=== PATIENT | male | born 1935 | race Caucasian/White ===

== ENCOUNTER → 2016-12-05 | Outpatient (CLI) | payer OTHER, BC ==
[~2016-12-05] MED LIST: AMLO-110 PO; ATOR-22 PO; CLON1TAB3 PO; DOXY100C41 PO; EFF/375 PO; FAMC500T4 PO; FRS/40 PO; MULT-190 PO; OXYC-57 PO; POTA20TA16 PO; QUET1TAB91 PO; SYMIN160 INH; TAMS0.4C38 PO; TRAZ100T29 PO; UMEC1AER INH
--- NOTE | 2016-12-05 17:35 | DIAGNOSTIC IMAGING REPORT ---
THREE-PHASE NUCLEAR BONE SCAN OF THE THORAX CLINICAL HISTORY: Right shoulder pain. Clinical concern for loosening. COMPARISON STUDY: Chest x-ray dated 11/02/2013. TECHNIQUE: Following the IV administration of 25.4 mCi of technetium 99m MDP, three-phase bone scan of the thorax was performed. Anterior and posterior flow and blood pool phase imaging was performed. Bone phase imaging of the thorax was performed at three hours in multiple obliquities. Note that interpretation is suboptimal without current plain film correlate. FINDINGS: There is no hyperemia identified in the thorax on the flow or blood pool phase images. On the bone phase images a photopenic defect is consistent with a right shoulder arthroplasty. There is slightly increased tracer present in the medial aspect of the proximal humerus on the bone phase images. There is also slightly increased Tracer activity within the right glenoid. Mild degenerative activity is present in the left shoulder and the cervical spine. IMPRESSION: 1. Three-phase negative bone scan of the right shoulder as above. 2. There is slightly increased tracer activity identified around the right shoulder arthroplasty as above. Although nonspecific this could be seen in the setting of aseptic loosening as clinically suspected. Electronically signed by: Tapan Henson M.D. 12/05/2016 5:33 PM Dictated Date/Time: 12/05/2016 5:28 PM
== END | disposition home or self-care (01) ==
LOC: C.NUCL 13:51
PROVIDERS: ATTEND Orthopaedic Surgery Sports Medicine
DX: T84.84XA Pain due to internal orthopedic prosthetic devices, implants and grafts, initial encounter (principal); Z96.611 Presence of right artificial shoulder joint; Y83.1 Surgical operation with implant of artificial internal device as the cause of abnormal reaction of the patient, or of later complication, without mention of misadventure at the time of the procedure

== ENCOUNTER → 2016-12-26 | Outpatient (CLI) | payer OTHER, BC ==
[~2016-12-26] VITALS: Ht 175.3 cm; Wt 112.8 kg
[2016-12-26 13:56] VITALS: Ht 175.3 cm; Wt 112.8 kg
--- NOTE | 2016-12-26 14:39 | PAT Medication Instructions ---
Service Date Dec 26, 2016. Current Home Medication List Amlodipine (Norvasc), 1 TAB PO HS Atorvastatin (Lipitor), 20 MG PO QPM Budesonide/Formoterol Fumarate (Symbicort 160/4.5 Inhaler ), 2 PUFFS INH BID Clonazepam (Klonopin), 2 MG PO TID PRN for Anxiety/Agitation Furosemide (Lasix), 2 TAB PO QAM Ocuvite Preservision (Ocuvite Preservision), 1 TAB PO DAILY Potassium Ext Rel (Klor-Con), 2 TAB PO QAM Quetiapine Fumarate (Seroquel), 125 MG PO HS Venlafaxine Hcl (Effexor), 2 TAB PO QAM Medication Instructions For Your Scheduled Surgery - Hold the following medications the morning of surgery: Furosemide (Lasix), 2 TAB PO QAM Potassium Ext Rel (Klor-Con), 2 TAB PO QAM Ocuvite Preservision (Ocuvite Preservision), 1 TAB PO DAILY - Take the following medications the morning of surgery with a sip of water OTHERWISE NOTHING TO EAT OR DRINK AFTER MIDNIGHT: Venlafaxine Hcl (Effexor), 2 TAB PO QAM Clonazepam (Klonopin), 2 MG PO TID PRN for Anxiety/Agitation Budesonide/Formoterol Fumarate (Symbicort 160/4.5 Inhaler ), 2 PUFFS INH BID - Take the following medications as scheduled the night before surgery: Amlodipine (Norvasc), 1 TAB PO HS Atorvastatin (Lipitor), 20 MG PO QPM Quetiapine Fumarate (Seroquel), 125 MG PO HS Clonazepam (Klonopin), 2 MG PO TID PRN for Anxiety/Agitation Budesonide/Formoterol Fumarate (Symbicort 160/4.5 Inhaler ), 2 PUFFS INH BID If you have any questions please call us at [phone] or [phone] or [phone]
[2016-12-26 15:39] LABS: BASO % 0.7 %; BASO ABS # 0.05 K/uL (0-0.2); COMPLETE YES; EOS % 2.1 %; HEMATOCRIT 40.2 % (42-52); IG% 2.1 %; LYMPH % 14.8 %; LYMPH ABS # 1.11 K/uL (1.2-3.4); MEAN CORPUSCULAR HEMOGLOBIN 30.3 pg (25-34); MEAN CORPUSCULAR HGB CONC 34.8 g/dl (32-36); MEAN PLATELET VOLUME 9.3 fL (7.4-10.4); MONO % 8.5 %; NEUT % 71.8 %; PLATELET COUNT 205 K/uL (130-400); RED BLOOD COUNT 4.62 M/uL (4.7-6.1)
[2016-12-26 15:41] LABS: URINE APPEARANCE CLEAR (CLEAR); URINE BILIRUBIN NEG (NEG); URINE COLOR DK YELLOW; URINE NITRITE NEG (NEG); URINE SPECIFIC GRAVITY 1.027 (1.000-1.030); UROBILINOGEN NEG (NEG)
[2016-12-26 15:43] LABS: MANUAL MICROSCOPIC REQUIRED? NO; REVIEW REQ? NO
[2016-12-26 16:05] LABS: BUN/CREATININE RATIO 21.2 (10-20); CALCIUM 9.2 mg/dl (8.5-10.1)
[2016-12-27 07:03] LABS: ESTIMATED AVERAGE GLUCOSE 157 mg/dl; HA1C FLAG Normal (Normal)
--- NOTE | 2017-02-03 09:14 | CODING QUERY MEDICAL NECESSITY ---
SUPPORTING DIAGNOSIS NEEDED Dr. Dodge, A supporting diagnosis is required for the test/procedure performed on this patient in order for us to be reimbursed by the patient's insurance. Please provide a supporting diagnosis for the following test/procedure listed below next to the test name along with your signature. *If there is no additional diagnosis for this patient that would support the following test/procedure please document that below next to the test/procedure. Test(s)/Procedure(s) that require a supporting diagnosis: * [id number] GLYCATED HEMOGLOBIN DIAGNOSIS: DATE OF SERVICE: 12/26/16 Provider Signature: Date: Thank you Tyron Thomson [facility] Information Management Once completed, please kindly fax back to [phone] For questions please call [phone]
== END | disposition home or self-care (01) ==
LOC: C.LAB 08:00 → EDSTATUS 12-28 08:29
PROVIDERS: ATTEND Orthopaedic Surgery Sports Medicine
DX: Z01.810 Encounter for preprocedural cardiovascular examination (principal); Z01.812 Encounter for preprocedural laboratory examination

== ENCOUNTER → 2017-01-16 | Outpatient (CLI) | payer OTHER, BC ==
[~2017-01-16] MED LIST changes: -FAMC500T4 PO; -TAMS0.4C38 PO; -TRAZ100T29 PO
--- NOTE | 2017-01-16 15:46 | ECHOCARDIOGRAM REPORT ---
*NOTICE TO RECEIVING DEMOCRAT AGENCY This information is strictly Confidential and protected under [place] law. [place] law prohibits you from making any further disclosure of this information unless further disclosure is expressly permitted by the written consent of the person to whom it pertains or is authorized by law. A general authorization for the release of medical or other information is not sufficient for this purpose. Hospital accepts no responsibility if the information is made available to any other person, INCLUDING THE PATIENT. Interpretation Summary * Name: AMOL RUIZ Study Date: 01/16/2017 01:56 PM BP: 162/70 mmHg * Patient Location: [facility] HR: 65 * : 1935 (M/d/yyyy) Gender: Male Height: 69 in * Age: 81 yrs Ethnicity: [place] Weight: 250 lb * Ordering Physician: Eric Jaimes DO * Performed By: Renee Brumfield RDCS * * Reason For Study: Murmur * BSA: 2.3 m2 * -- Conclusions -- * 1. Normal LV size. Mild concentric LVH. * 2. Normal LV systolic function. LVEF 55-60%. No regional wall motion abnormalities. * 3. Mildly dilated RV. Normal RV function. * 4. Moderate aortic sclerosis without stenosis. * 5. Grade I diastolic dysfunction. * 6. Mild biatrial enlargement. * 7. Compared with prior study on 10/28/2012: No significant change. Procedure Details * A complete two-dimensional transthoracic echocardiogram was performed (2D, M-mode, Doppler and color flow Doppler). Left Ventricle * The left ventricle is grossly normal size. * There is mild concentric left ventricular hypertrophy. * Ejection Fraction = 55-60%. * No regional wall motion abnormalities noted. Right Ventricle * The right ventricle is mildly dilated. * The right ventricular systolic function is normal as assessed by tricuspid annular plane systolic excursion (TAPSE) (normal >1.5 cm). Atria * The left atrium is mildly dilated. * The right atrium is mildly dilated. * No ASD detected; PFO is not assessed. Mitral Valve * The mitral valve is grossly normal. * There is no mitral valve stenosis. * Significant mitral regurgitation is absent. Tricuspid Valve * The tricuspid valve is not well visualized, but is grossly normal. * There is no tricuspid stenosis. * There is trace tricuspid regurgitation. Aortic Valve * Aortic valve sclerosis moderate, without significant aortic valvular stenosis. * The aortic valve is trileaflet. * There is no significant aortic regurgitation. Pulmonic Valve * The pulmonary valve is inadequately visualized, but the Doppler data is adequate for interpretation. * There is no pulmonic valvular stenosis. * There is no pulmonic valvular regurgitation. Great Vessels * The aortic root and proximal ascending aorta are normal sized. Pericardium/Pleural * There is no pericardial effusion. Great Vessels * Normal inferior vena cava size and collapsability with sniff indicates a normal right atrial pressure of 3 mmHg Left Ventricular Diastolic Function * Grade I diastolic dysfunction, (abnormal relaxation pattern). MMode 2D Measurements and Calculations IVSd 1.3 cm LVIDd 5.0 cm LVIDs 3.1 cm LVPWd 1.2 cm IVS/LVPW 1.0 FS 37.6 % EDV(Teich) 118.4 ml ESV(Teich) 38.5 ml EF(Teich) 67.4 % EDV(cubed) 125.2 ml ESV(cubed) 30.4 ml EF(cubed) 75.7 % LV mass(C)d 243.7 grams LV mass(C)dI 107.3 grams/m\S\2 CO(Teich) 5.7 l/min CI(Teich) 2.5 l/min/m\S\2 SV(Teich) 79.8 ml SI(Teich) 35.1 ml/m\S\2 CO(cubed) 6.8 l/min CI(cubed) 3.0 l/min/m\S\2 SV(cubed) 94.8 ml SI(cubed) 41.7 ml/m\S\2 Ao root diam 3.5 cm Ao root area 9.5 cm\S\2 LA dimension 3.8 cm asc Aorta Diam 3.3 cm LA/Ao 1.1 LVOT diam 2.0 cm LVOT area 3.3 cm\S\2 LVAd ap4 28.1 cm\S\2 LVLd ap4 7.8 cm EDV(MOD-sp4) 82.6 ml LVAs ap4 17.5 cm\S\2 LVLs ap4 6.9 cm ESV(MOD-sp4) 37.6 ml EF(MOD-sp4) 54.5 % LVAd ap2 27.2 cm\S\2 LVLd ap2 7.6 cm EDV(MOD-sp2) 78.8 ml LVAs ap2 16.1 cm\S\2 LVLs ap2 6.3 cm ESV(MOD-sp2) 34.1 ml EF(MOD-sp2) 56.7 % CO(MOD-sp4) 3.2 l/min CI(MOD-sp4) 1.4 l/min/m\S\2 SV(MOD-sp4) 45.0 ml SI(MOD-sp4) 19.8 ml/m\S\2 CO(MOD-sp2) 3.2 l/min CI(MOD-sp2) 1.4 l/min/m\S\2 SV(MOD-sp2) 44.7 ml SI(MOD-sp2) 19.7 ml/m\S\2 Doppler Measurements and Calculations MV E max luis 47.5 cm/sec MV A max luis 99.9 cm/sec MV E/A 0.48 MV dec time 0.48 sec Ao V2 max 270.5 cm/sec Ao max PG 29.3 mmHg Ao max PG (full) 25.5 mmHg Ao V2 mean 192.9 cm/sec Ao mean PG 17.4 mmHg Ao V2 VTI 52.3 cm OSMANI(V,A) 1.2 cm\S\2 OSMANI(V,D) 1.2 cm\S\2 LV V1 max PG 3.8 mmHg LV V1 max 97.0 cm/sec SV(Ao) 494.6 ml SI(Ao) 217.8 ml/m\S\2 PA V2 max 162.9 cm/sec PA max PG 10.6 mmHg PA acc slope 812.8 cm/sec\S\2 PA acc time 0.11 sec PA pr(Accel) 31.5 mmHg
== END | disposition home or self-care (01) ==
LOC: C.CPL 13:14
PROVIDERS: ATTEND Neuromusculoskeletal Medicine & OMM
DX: R01.1 Cardiac murmur, unspecified (principal)

== ENCOUNTER → 2017-03-14 | Outpatient (CLI) | payer OTHER, BC ==
[2017-03-14 15:45] LABS: BASO % 0.3 %; BASO ABS # 0.02 K/uL (0-0.2); COMPLETE YES; EOS % 2.1 %; HEMATOCRIT 42.1 % (42-52); IG% 0.1 %; LYMPH % 20.2 %; LYMPH ABS # 1.35 K/uL (1.2-3.4); MEAN CELL VOLUME 89.6 fL (80-100); MEAN CORPUSCULAR HEMOGLOBIN 29.6 pg (25-34); MEAN PLATELET VOLUME 9.7 fL (7.4-10.4); MONO % 8.4 %; NEUT % 68.9 %; PLATELET COUNT 225 K/uL (130-400); WHITE BLOOD COUNT 6.69 K/uL (4.8-10.8)
[2017-03-14 15:50] LABS: URINE APPEARANCE CLEAR (CLEAR); URINE BILIRUBIN NEG (NEG); URINE COLOR YELLOW; URINE EPITHELIAL CELL AUTO 0-5 /lpf (0-5); URINE NITRITE NEG (NEG); URINE SPECIFIC GRAVITY 1.022 (1.000-1.030); UROBILINOGEN NEG (NEG)
[2017-03-14 15:51] LABS: MANUAL MICROSCOPIC REQUIRED? NO; REVIEW REQ? NO
[2017-03-14 16:12] LABS: BLOOD UREA NITROGEN 14 mg/dl (7-18); BUN/CREATININE RATIO 12.6 (10-20); CALCIUM 9.4 mg/dl (8.5-10.1); CARBON DIOXIDE 26 mmol/L (21-32); CHLORIDE 108 mmol/L (98-107); GLUCOSE 114 mg/dl (70-99); POTASSIUM 3.8 mmol/L (3.5-5.1); SODIUM 144 mmol/L (136-145)
== END | disposition home or self-care (01) ==
LOC: C.LAB 14:26
PROVIDERS: ATTEND Orthopaedic Surgery Sports Medicine
DX: M75.41 Impingement syndrome of right shoulder (principal)

== ENCOUNTER 2017-03-31 08:18 | Day surgery (SDC) | payer OTHER, BC ==
[2017-03-16 11:19] VITALS: BMI 35.0
--- NOTE | 2017-03-30 21:39 | HISTORY & PHYSICAL EXAMINATION ---
DATE OF ADMISSION: 03/31/2017 ADMISSION HISTORY AND PHYSICAL CHIEF COMPLAINT: Chronic right shoulder pain. HISTORY OF PRESENT ILLNESS: This is a 81-year-old male patient of Dr. Gomez with chronic right shoulder pain, longstanding, now progressively getting worse. The patient underwent a total shoulder replacement in 2007. Since then, he has been having symptoms of pain and decreased function. X-rays and CT scans showed a possible rotator cuff tear and arthritis as well as impingement, so he wishes to proceed with a right shoulder arthroscopy, possible rotator cuff repair, subacromial decompression and distal clavicle excision with bursectomy. PAST MEDICAL HISTORY: Hypertension, hypercholesterolemia, irregular heartbeat, asthma, COPD, anxiety, diabetes mellitus, osteoarthritis, spine problems, neck problems, sciatica, acid reflux, obesity, dental issues and BPH. SOCIAL HISTORY: Nonsmoker, nondrinker. PAST SURGICAL HISTORY: Hernia repair and a right total shoulder arthroplasty. FAMILY HISTORY: Noncontributory. REVIEW OF SYSTEMS: The patient complains of chronic right shoulder pain. Otherwise, denies any shortness of breath, chest pain, nausea, vomiting or any other joint complaints. MEDICATIONS: Include: 1. Amlodipine 5 mg daily. 2. Atorvastatin 20 mg daily. 3. Clonazepam 1 mg daily p.r.n. 4. Klor-Con potassium 20 mEq 2 tablets in the morning. 5. Lasix 40 mg b.i.d. 6. Losartan potassium 50 mg daily. 7. Nasonex 50 mcg 1 spray in each nostril b.i.d. 8. Symbicort 2 puffs twice daily. 9. Tamsulosin 0.4 mg daily. 10. Venlafaxine 37.5 mg 1 tablet b.i.d. 11. Ventolin HFA inhaler every 4 hours as needed for 2 puffs. 12. Ellipta 62.5/25 mcg inhaler 1 puff q.a.m. inhaler. ALLERGIES: PENICILLIN, CODEINE, ATENOLOL, MORPHINE, TEGRETOL, VERAPAMIL, AND MYSOLINE. PHYSICAL EXAMINATION: GENERAL: Well-developed, well-nourished 81-year-old male in no acute distress. He is alert and oriented x3 and pleasant. HEENT: Normocephalic, atraumatic. Extraocular motions are intact. Pupils are equal and reactive to light. HEART: Reg, Irreg heartbeat with a 3/6 murmur appreciated. LUNGS: Clear. ABDOMEN: Soft and nontender, bowel sounds are present. DIAGNOSES: Right shoulder chronic pain with a history of hypertension, hypercholesterolemia, asthma, chronic obstructive pulmonary disease, anxiety, diabetes, arthritis, spine problems, neck problems, sciatica, acid reflux, obesity, dental issues and benign prostatic hypertrophy. PLAN: The patient was advised of his diagnosis. Indications, risks, benefits, and postop course have all been reviewed. The patient wishes to proceed with a right shoulder arthroscopy, possible rotator cuff repair, subacromial decompression, distal clavicle excision and bursectomy. Necessary consent forms, preoperative testing and clearances will be obtained. DAGO
[~2017-03-31] VITALS: Ht 175.3 cm; Wt 109.1 kg
[~2017-03-31 08:18] MED LIST changes: +ANCEF: ALLERGY NOTED TO ORDERED MEDICATION SCH; +BUPIVACAINE 0.5 % 5 MG/1 ML PF 10ML VIAL ONE; +CEFAZOLIN 2000 MG/60 ML D5W IV SCH; +CLONIDINE HCL 100 MCG/ML SYRINGE ONE; -DOXY100C41 PO; +LACTATED RINGER'S 1000ML 1,000 ML IV SCH; +MEPIVACAINE HCL 1.5% 30 ML VIAL ONE; -OXYC-57 PO; -SYMIN160 INH
--- NOTE | 2017-03-31 09:02 | History & Physical Bridge Note ---
H&P Re-Evaluation Bridge Note: I have examined the patient, reviewed the History & Physical and in the interval since the performance of the History & Physical I have noted the following changes of clinical significance: No changes noted
[2017-03-31 09:18] VITALS: BP 146/95; PULSE 64; TEMP 36.8; O2SAT 96; Ht 175.3 cm; Wt 109.1 kg
[2017-03-31] MEDS ORDERED: MIDAZOLAM HCL 1 MG/ML 2ML VIAL ONE (09:51)
[2017-03-31] MEDS ORDERED: FENTANYL CITRATE INJ 50 MCG/1 ML 2 ML VIAL ONE ×2 (09:51→12:58)
[2017-03-31] MEDS ORDERED: SODIUM CHLORIDE 0.9% 1000ML 1,000 ML IV SCH (13:37)
[2017-03-31] MEDS ORDERED: OXYC-57 PO (13:44)
[2017-03-31] MEDS ORDERED: DOXY100C41 PO (13:44)
[2017-03-31] MEDS ORDERED: OXYCODONE/ACETAMINOPHEN 5-325 TAB PO PRN ×2 (13:45)
--- NOTE | 2017-03-31 13:46 | Discharge Instructions ---
Discharge Instructions Date of Service March 31, 2017. Admission Reason for Admission: Impingment Syndrome Of Right Shoulder, Osteoarthr Discharge Discharge Diagnosis / Problem: Right shoulder scope, DCE, decompression Discharge Goals Goal(s): Improve function Activity Recommendations Activity Limitations: as noted below . Instructions / Follow-Up Instructions / Follow-Up See printed home sheet instructions in chart. See printed sheet for home exercises. Begin PT next week. Follow up w Dr. Dodge 10-12 d post op, call [phone] to confirm appt. Current Hospital Diet Patient's current hospital diet: Discharge Diet Recommended Diet: Regular Diet Procedures Procedures Performed: Right Shoulder Arthroscopic Subacromial Decompression, Distal Clavicle Excision , Synovectomy, Bursectomy Pending Studies Studies pending at discharge: no Medical Emergencies . Who to Call and When: Medical Emergencies: If at any time you feel your situation is an emergency, please call 911 immediately. . Non-Emergent Contact Non-Emergency issues call your: Primary Care Provider . "Provider Documentation" section prepared by Marco A Nguyen. . VTE Core Measure Inpt VTE Proph given/why not?: SCD's [place] Drug Monitoring Program Search Results: patient reviewed within database, no issues identified
[2017-03-31] MEDS ORDERED: EpHEDrine SULFATE 50MG/5ML SYR ONE (13:50)
[2017-03-31] MEDS ORDERED: VASOPRESSIN 20 UNIT/ML VIAL ONE (13:50)
[2017-03-31] MEDS ORDERED: PHENYLEPHRINE 100MCG/ML 5ML SYR ONE (13:50)
[2017-03-31] MEDS ORDERED: LIDOCAINE HCL 2% 2 ML VIAL (20MG/ML) ONE (13:50)
[2017-03-31] MEDS ORDERED: SUCCINYLCHOLINE 100MG/5ML SYR IV ONE (13:50)
[2017-03-31] MEDS ORDERED: PROPOFOL IV EMULSION 10 MG/ML 20 ML VIAL IV ONE (13:50)
--- NOTE | 2017-03-31 13:50 | [facility] Operative Report ---
Operative Report Operative Date March 31, 2017. Pre-Operative Diagnosis Chronic right shoulder pain s/p total shoulder replacement with impingement acj arthritis Post-Operative Diagnosis same chronic synovitis ,early glenoid looseneing, intact rotator cuff Procedure(s) Performed right shoulder arthroscopy with decompression and distal clavicle excision and extensive debridement Surgeon analilia Skimmer Scoop Operator Surgeon(s) [place] Estimated Blood Loss 5cc Findings as above scarred subacromial bursa and intact rotator cuff and loosening upper aspect of glenoid implant with micromotion Specimens culture: 1. Right shoulder joint fluid Drains none Anesthesia general and regional Complication(s) None Disposition Recovery Room / PACU Indications chronic pain I attest to the content of the Intraoperative Record and any orders documented therein. Any exceptions are noted below.
[2017-03-31] MEDS: HYDROmorphone INJ 1 MG/ML SYR ONE (13:51)
[2017-03-31] MEDS ORDERED: HYDROmorphone INJ 1 MG/ML SYR IV PRN (14:15)
[2017-03-31] MEDS ORDERED: NALOXONE HCL 0.4 MG/1 ML VIAL/CARP IV PRN (14:15)
[2017-03-31] MEDS ORDERED: FLUMAZENIL 0.1 MG/1 ML 10 ML VIAL IV PRN (14:15)
[2017-03-31] MEDS ORDERED: LABETALOL HCL IV 5 MG/ML 20ML IV PRN (14:15)
[2017-03-31] MEDS ORDERED: ATROPINE SULFATE 0.1 MG/ML 5ML SYR IV PRN (14:15)
[2017-03-31] MEDS ORDERED: ONDANSETRON INJ 2 MG/ML 2 ML VIAL IV PRN (14:15)
[2017-03-31] MEDS ORDERED: PROMETHAZINE HCL INJ 12.5 MG in SODIUM CHLORIDE 0.9% 50ML 50 ML IV PRN (14:15)
--- NOTE | 2017-03-31 14:34 | Anesthesiology Progress Note ---
Anesthesia Post Op Note Date & Time March 31, 2017 at 14:33 Vital Signs Pain Intensity: 3 Vital Signs Past 12 Hours Date Time Temp Pulse Resp B/P Pulse Ox O2 Delivery O2 Flow Rate FiO2 03/31/17 14:20 80 16 143/66 96 Nasal Cannula 2 03/31/17 14:10 73 22 171/87 96 Nasal Cannula 2 03/31/17 14:00 78 19 143/71 95 Nasal Cannula 2 03/31/17 13:50 78 17 169/96 100 Mask 10 03/31/17 13:41 36.4 90 14 168/117 98 Mask 10 03/31/17 09:18 36.8 64 20 146/95 96 Room Air Notes Mental Status: alert / awake / arousable, participated in evaluation Pt Amnestic to Procedure: Yes Nausea / Vomiting: adequately controlled Pain: adequately controlled Airway Patency, RR, SpO2: stable & adequate BP & HR: stable & adequate Hydration State: stable & adequate Anesthetic Complications: no major complications apparent
[2017-03-31 14:45] VITALS: BP 145/67; PULSE 78; TEMP 36.4; O2SAT 94
--- NOTE | 2017-03-31 14:49 | OPERATIVE REPORT ---
DATE OF OPERATION: 03/31/2017 INDICATION FOR PROCEDURE: A 81-year-old male who had a total shoulder replacement years ago. He was doing well for many years until recently when he started developing increasing pain with certain activities. He has radiographs demonstrating some minor calcar resorption around the proximal humerus. He has uncemented humeral stem which looks to be well fixed in position. There is no proximal migration of the humeral stem. He has a keeled glenoid cemented component with less than a millimeter lucency around the cement with good position of the implant. No change on serial x-rays and alignment of the implant. Does have advanced AC joint arthritis and has some anterior curve to the anterior acromion with type 2-3 acromion that would cause impingement. He has had a CAT scan which did not show rotator cuff tear. He does have bone on bone AC joint arthritis. He did have a bone scan which showed some mild uptake around the humeral component and the glenoid, but no clear evidence of obvious loosening, no signs of infection. Blood tests not remarkable for infection. PREOPERATIVE DIAGNOSES: Chronic right shoulder pain with total shoulder replacement with impingement and acromioclavicular joint arthritis. POSTOPERATIVE DIAGNOSES: Early glenoid loosening upper aspect of the glenoid component with synovitis glenohumeral joint, intact rotator cuff, scar tissue and chronic subacromial bursitis with significant impingement from a type 3 acromion and large inferior AC joint spurs with hypertrophic acromioclavicular joint arthritis. PROCEDURE: Right shoulder arthroscopic subacromial decompression, distal clavicle excision, extensive debridement including debridement subacromial bursa and scar tissue, release of subacromial adhesions with synovectomy glenohumeral joint. SURGEON: Dr. Dodge. FNPS: Marco A Nguyen PA-C. ANESTHESIA: Regional block general. OPERATIVE PROCEDURE: The patient was taken to the operating room, anesthetized with regional block and general anesthetic. He was a short barrel chest did male moderately muscular. He had benign healed anterior deltopectoral scar. His shoulder exam demonstrated he had 150 degrees of forward elevation and external rotation to 70 degrees. His shoulder was sterilely prepped and draped with ChloraPrep. I placed the scope into the glenohumeral joint via posterior arthroscopy portal in the soft spot. There was some normal appearing synovial fluid that we cultured from the joint. Then the scope instrumentation was placed in and we placed an anterior cannula and rotator interval into the joint and irrigated out the joint and inspected it. There was some diffuse synovitis in the glenohumeral joint. Biceps tendon was absent. The rotator cuff was completely intact. There was loosening of the glenoid. When probing the upper glenoid I could rock the upper aspect forward and backward but the lower part of the glenoid was more well fixed and there was not any micromotion at the lower aspect. In the subacromial space was thickened chronic scarred subacromial bursa, a type 3 acromion was a large hook to the anterior medial side, hypertrophic AC joint causing significant impingement and intact rotator cuff with completely intact cuff from the subacromial view. In the glenohumeral joint I did a thorough extensive debridement of the synovium anteriorly and posteriorly and debrided the undersurface of the cuff so we could fully visualize the rotator cuff to be intact. In the subacromial space, I did a thorough debridement extensively of the extensive bursa and scar tissue in the subacromial space, freeing up the rotator cuff from the underlying acromion and deltoid. Then the radiofrequency ablator was used to ablate the the bursa and periosteum on the undersurface of the acromion and then the inferior AC joint capsule was ablated to expose the large hypertrophic inferior distal clavicle. There was no room for the rotator cuff with the distal clavicle impinging down into the tendon tissue. At this time, a 5.5 bur was used to plane down the acromion to a type 1 flat shape and 1 cm distal clavicle was resected using burrs through the lateral and anterior portal and 30 and 70 degree arthroscopes were used to visualize resection. We coagulated some bleeders. I took the arm through range of motion and there was no impingement. The portal sites were then closed with nylon sutures. Sterile dressings were applied and a sling immobilizer. FLORIN Gregorio was my airplane first officer. He functioned as airplane first officer for the entire procedure. He assisted in patient positioning, prepping, draping, arm positioning, instrument management during the arthroscopy and performed skin closure, dressings, postoperative orders and will participate in postoperative care of the patient. I attest to the content of the Intraoperative Record and any orders documented therein. Any exceptio ns are noted below.
[2017-03-31 15:15] VITALS: BP 138/69; PULSE 82; TEMP 36.4; O2SAT 95
[2017-03-31 15:45] VITALS: BP 151/68; PULSE 88; TEMP 36.4; O2SAT 93
== END 2017-03-31 15:50 | disposition home or self-care (01) ==
LOC: C.ACU 08:18
PROVIDERS: ATTEND Orthopaedic Surgery Sports Medicine
DX: M25.511 Pain in right shoulder (principal); G89.29 Other chronic pain; Z96.611 Presence of right artificial shoulder joint; M19.011 Primary osteoarthritis, right shoulder; M75.41 Impingement syndrome of right shoulder; E11.22 Type 2 diabetes mellitus with diabetic chronic kidney disease; N18.9 Chronic kidney disease, unspecified; I12.9 Hypertensive chronic kidney disease with stage 1 through stage 4 chronic kidney disease, or unspecified chronic kidney disease; E66.9 Obesity, unspecified; J44.9 Chronic obstructive pulmonary disease, unspecified; I25.10 Atherosclerotic heart disease of native coronary artery without angina pectoris; J45.909 Unspecified asthma, uncomplicated; G20 Parkinson's disease; Z87.891 Personal history of nicotine dependence; Z79.899 Other long term (current) drug therapy; Z88.0 Allergy status to penicillin; Z88.5 Allergy status to narcotic agent

== ENCOUNTER → 2017-04-14 | Outpatient (CLI) | payer OTHER, BC ==
[~2017-04-14] MED LIST changes: -ANCEF: ALLERGY NOTED TO ORDERED MEDICATION SCH; -BUPIVACAINE 0.5 % 5 MG/1 ML PF 10ML VIAL ONE; -CEFAZOLIN 2000 MG/60 ML D5W IV SCH; -CLONIDINE HCL 100 MCG/ML SYRINGE ONE; +DOXY100C41 PO; -LACTATED RINGER'S 1000ML 1,000 ML IV SCH; -MEPIVACAINE HCL 1.5% 30 ML VIAL ONE; +OXYC-57 PO
--- NOTE | 2017-04-14 11:06 | DIAGNOSTIC IMAGING REPORT ---
LUMBAR SPINE MRI HISTORY: Low back pain. STENOSIS TECHNIQUE: Multiplanar multisequence MRI of the lumbar spine was performed without the use of contrast. COMPARISON: Lumbar spine 03/10/2016. FINDINGS: For the purpose of the report the L5-S1 disc space will be located on axial image 23 of 25. Mild dextroscoliosis, unchanged. The alignment is intact. No fractures. Mild endplate and facet edema at L4-5 is likely due to the long-standing degenerative change. Severe disc space narrowing at L2-L3, L3 on 4. Moderate to severe disc space narrowing at L4-L5 and L5-S1. The conus terminated L1. Paraspinal soft tissues are unremarkable. L1-L2: No significant central canal or neural foraminal narrowing. L2-L3: Small broad-based posterior disc bulge with facet hypertrophy resulting in mild central canal and mild bilateral neural foraminal narrowing. L3-L4: Small broad-based posterior disc bulge without significant central canal narrowing. Mild bilateral neural foraminal narrowing. L4-L5: Small broad-based posterior disc bulge with the ligamentum and facet hypertrophy resulting in mild central canal narrowing. Moderate to severe bilateral neural foraminal narrowing. L5-S1: No central canal narrowing. Mild left neural foraminal narrowing and moderate to severe right neural foraminal narrowing due to the facet hypertrophy. IMPRESSION: 1. Mild dextroscoliosis. 2. Multilevel degenerative changes as described above resulting in mild central canal narrowing at L2-L3 and L4-L5. 3. Multilevel bilateral neural foraminal narrowing as described above most pronounced within the lower lumbar spine. Electronically signed by: Orville Brooke M.D. 04/14/2017 11:05 AM Dictated Date/Time: 04/14/2017 10:56 AM
== END | disposition home or self-care (01) ==
LOC: C.MRIBC 09:59
PROVIDERS: ATTEND Orthopaedic Surgery Orthopaedic Surgery of the Spine
DX: M48.06 Spinal stenosis, lumbar region (principal)

== ENCOUNTER → 2017-05-15 | Outpatient (CLI) | payer OTHER, BC ==
[~2017-05-15] MED LIST changes: -DOXY100C41 PO
--- NOTE | 2017-05-15 10:05 | DIAGNOSTIC IMAGING REPORT ---
CT SCAN OF THE CHEST WITHOUT IV CONTRAST CLINICAL HISTORY: Pulmonary nodules. COMPARISON STUDY: Chest CT dated 06/20/2015. Chest x-ray dated 05/01/2016. Abdominal CT dictated 10/25/2016 and 05/22/2015. TECHNIQUE: CT scan of the thorax was performed from the thoracic inlet to the upper abdomen. Images are reviewed in the axial, sagittal, and coronal planes. IV contrast was not administered for this examination as per the front clinician. CT DOSE: 623.36 mGycm FINDINGS: Thyroid: Imaged portions of the thyroid gland are normal in size and attenuation. Thoracic aorta: There is mild atherosclerotic calcification of the thoracic aorta, which is normal in caliber and demonstrates standard 3-vessel arch anatomy. Heart: The heart is normal in size and without pericardial effusion. The coronary arteries are densely calcified. The pulmonary trunk is normal in caliber. Lungs and pleural spaces: There is minimal emphysematous change. No airspace consolidation or pleural effusion is identified. The trachea and central airways are clear. There is an accessory right upper lobe bronchus seen on axial image #100. There is a 7 mm right lower lobe pulmonary nodule seen image #211. A 3 mm pleural-based nodule is seen at the left lung base on image #254. These are unchanged dating back to 05/22/2015 and are of doubtful significance. No new pulmonary nodules are identified. The clustered foci of nodularity in the left lower lobe seen on the 10/25/[address] have resolved femora likely on an inflammatory basis. Mediastinum: There is no mediastinal lymphadenopathy. Paulette: Not well assessed without IV contrast. Axillae: There is no axillary lymphadenopathy. Upper abdomen: There is a tiny hiatal hernia. Partially visualized upper abdominal viscera is otherwise within normal limits. Skeletal structures: The skeletal structures are osteopenic. Mild degenerative change is seen in the thoracic spine and the left shoulder. No lytic or blastic bony lesions are seen. A right shoulder arthroplasty is in place. There is a mild superior end plate compression deformity of T3. IMPRESSION: 1. There is no airspace consolidation or pleural effusion. 2. A 7 mm right lower lobe pulmonary nodule has not significantly changed him back to 05/22/2015 and is of doubtful significance. 3. Foci of clustered nodularity in the left lower lobe seen on the 10/25/[address] have resolved and were likely on an inflammatory basis. 4. Additional findings as above. Electronically signed by: Tapan Henson M.D. 05/15/2017 10:03 AM Dictated Date/Time: 05/15/2017 9:55 AM
== END | disposition home or self-care (01) ==
LOC: C.CTS 09:25
PROVIDERS: ATTEND Internal Medicine Geriatric Medicine
DX: R91.8 Other nonspecific abnormal finding of lung field (principal)

== ENCOUNTER → 2017-05-22 | Outpatient (CLI) | payer OTHER, BC | END | disposition home or self-care (01) | LOC: C.PATHSPEC 16:50 | PROVIDERS: ATTEND Nurse Practitioner Adult Health | DX: R31.29 Other microscopic hematuria (principal) ==

== ENCOUNTER → 2017-06-12 | Outpatient (CLI) | payer OTHER, BC ==
[2017-06-12 17:55] LABS: BASO % 0.5 %; BASO ABS # 0.03 K/uL (0-0.2); COMPLETE YES; EOS % 3.1 %; HEMATOCRIT 41.9 % (42-52); IG% 0.6 %; LYMPH % 22.9 %; LYMPH ABS # 1.42 K/uL (1.2-3.4); MEAN CELL VOLUME 88.2 fL (80-100); MEAN CORPUSCULAR HEMOGLOBIN 29.3 pg (25-34); MEAN CORPUSCULAR HGB CONC 33.2 g/dl (32-36); MEAN PLATELET VOLUME 10.2 fL (7.4-10.4); NEUT % 62.9 %; PLATELET COUNT 191 K/uL (130-400); RED BLOOD COUNT 4.75 M/uL (4.7-6.1); WHITE BLOOD COUNT 6.19 K/uL (4.8-10.8)
[2017-06-12 18:18] LABS: ALT/SGPT 39 U/L (12-78); BLOOD UREA NITROGEN 17 mg/dl (7-18); BUN/CREATININE RATIO 13.8 (10-20); CALCIUM 9.8 mg/dl (8.5-10.1); CARBON DIOXIDE 27 mmol/L (21-32); CHLORIDE 107 mmol/L (98-107); GLUCOSE 128 mg/dl (70-99); POTASSIUM 4.1 mmol/L (3.5-5.1); SODIUM 141 mmol/L (136-145)
[2017-06-12 18:28] LABS: ALKALINE PHOSPHATASE 85 U/L (45-117); AST/SGOT 20 U/L (15-37); PROSTATE SPECIFIC ANTIGEN 0.994 ng/ml (0.000-4.000)
[2017-06-13 06:29] LABS: ESTIMATED AVERAGE GLUCOSE 157 mg/dl; HA1C FLAG Normal (Normal)
== END | disposition home or self-care (01) ==
LOC: C.LABPBG 14:03
PROVIDERS: ATTEND Internal Medicine Geriatric Medicine
DX: I10 Essential (primary) hypertension (principal); E11.9 Type 2 diabetes mellitus without complications; R00.2 Palpitations; D64.9 Anemia, unspecified; R25.1 Tremor, unspecified; R35.0 Frequency of micturition; N40.1 Benign prostatic hyperplasia with lower urinary tract symptoms

== ENCOUNTER → 2017-12-04 | Outpatient (CLI) | payer OTHER, BC ==
[~2017-12-04] MED LIST changes: -OXYC-57 PO
--- NOTE | 2017-12-04 12:53 | DIAGNOSTIC IMAGING REPORT ---
CT OF THE CHEST WITHOUT IV CONTRAST CLINICAL HISTORY: COPD. COMPARISON STUDY: Chest CT May 15, 2017 and June 20, 2015. CT DOSE: 604.97 mGycm TECHNIQUE: Axial images of the chest were obtained without IV contrast. Images were reviewed in the axial, sagittal, and coronal planes. IV contrast was not administered for this examination. A dose lowering technique was utilized adhering to the principles of ALARA. FINDINGS: No enlarged axillary, mediastinal or hilar lymph nodes are present. Size of the heart is normal. No pericardial effusion. There is extensive coronary artery calcification. Central airways are patent. There is no consolidation to suggest pneumonia. Mild right upper lobe groundglass opacity suggests atelectasis. A 7 mm right lower lobe nodule shown image 215 of 321 is unchanged since abdominal CT of April 03, 2009. This is benign. There are no new pulmonary nodules. An apparent right upper lobe bronchus is noted. No pneumothorax or pleural effusion is noted. There are no suspicious osseous lesions. Visual portions of the upper abdomen are unremarkable on this unenhanced exam. Mild mesenteric infiltration is unchanged. IMPRESSION: 1. No acute intrathoracic findings. 2. No change in a 7 mm right lower lobe nodule which is benign given stability. 3. Extensive coronary artery calcification. Electronically signed by: Mak Shore M.D. 12/04/2017 12:52 PM Dictated Date/Time: 12/04/2017 12:31 PM
== END | disposition home or self-care (01) ==
LOC: C.CTS 11:37
PROVIDERS: ATTEND Internal Medicine Pulmonary Disease
DX: J44.9 Chronic obstructive pulmonary disease, unspecified (principal); I25.10 Atherosclerotic heart disease of native coronary artery without angina pectoris

== ENCOUNTER → 2017-12-28 | Outpatient (CLI) | payer OTHER, BC ==
[~2017-12-28] MED LIST changes: +CLIN150C15 PO; +PRED10TA PO
--- NOTE | 2017-12-29 08:13 | PAP/PSG TECHNICIAN REPORT ---
[facility] Entry Level Automotive Technician Polysomnogram Report Study name: None Report date: 12/29/2017 Study date: 12/28/2017 Referring Physician: August Moreland MD Name: AMOL WATERMAN Interpreting Physician: Steve Smith D.O. Date of : 1935 Entry Level Automotive Technician: Cailin Jurado, JEREMIAHT. Sex: Male Age: 82 StudyType: PSG Weight: 245 lbs Height: 82 years, Height 5' 9" Neck Circum: BMI: 36.18 Medications: Nasanex, Ventolin, Quetiaoine Fumarate 100 mg, Metformin HCI 500 mg, Atrovastatin 20 mg, Tamsulosin HCI, Losatan 50 mg, Breo 100-25, Symbicort 160-4.5 mcg, Venlafaxine HCI 37.5 mg. Patient History 82 yr. old male presents to the sleep lab for a split night study. Acute Hypersomnolence, COPD, Diabetes, Hypertension, SOB, Aortic valve stenosis, Nocturnal oxygen desaturation. Ess= 10, Neck =17 inches Patient has heart burn and sore throat, he is sleeping with HOB elevated Parameters Monitored NPSG: E1-M2, E2-M1, Fp1-M2, Fp2-M1, F3-M2, F4-M2, F4-M1, C3-M2, C4-M2, C4-M1, O1-M2, O2-M2, O2-M1, T3-M2, T4-M1, P3-M2, P4-M1, CHIN1, CHIN2, HR, EKG, Legs, PFLOW, SNOR, FLOW, CFLOW, Tidal Volume, THOR, ABDO, SpO2, PLTH, CPRESS, ETCO2 Wave, ETCO2, pH Sleep Architecture Sleep Stages Time at Lights Off 9:33:02 PM STAGES Time (min.) TST (%) Time at Lights On 2:11:32 AM Wake 112.0 -- Total Recording Time (TRT) 279.00 min. N1 18.0 11 Total Sleep Period (TSP) 225.5 min. N2 148.5 89 Total Sleep Time (TST) 166.5min. N3 0.0 0 Awake Time 112.5 min. REM 0.0 0 Wake after Sleep Onset 99.5 min. Sleep Efficiency (SE) 60 % Sleep Onset Latency (KIERAN) 12.5 min. Number of Stage 1 Shifts None Awakenings 13 Stage Changes 41 Number of REM periods N/A REM 0.0 0 REM Latency NONE min. NREM 166.5 100 Body Position Analysis Supine Right Left Side Prone Vertical Total Sleep Time (min.) 4.1 88.5 78.0 166.50 0.0 14.5 Total Sleep Time (%) 0% 53% 47% 100 0% N/A% Total Sleep Time REM (min.) 0.0 0.0 0.0 None 0.0 0.0 Total Sleep Time NREM (min.) 0.0 88.5 78.0 None 0.0 0.0 Intermittent Wake (min.) 4.1 62.5 30.9 None 0.0 14.5 Total Sleep Period (%) 2% None None None None None Arousals Myoclonus (PLM) * Events Count Index Events Count Index Spontaneous 0 0 Events Awake (PLMW) 6 3.2 Respiratory 1 0.4 Events Asleep w/ Arousal (PLMA) 10 3.6 PLM 10 4 Events Asleep w/o Arousal (PLMS) 168 60.5 Snoring 4 1 Total Asleep 178 64.1 Total 15 5 Total 184 40 Respiratory Analysis * CA OA MA CH H RERA Total Count 0 0 0 0 2 0 2 Index 0.0 0.0 0.0 0 0.7 0 0.7 Mean Duration 0.0 0.0 0.0 0.00 20.3 0.0 20.3 Longest Duration 0.0 0.0 0.0 0.00 0.0 0.0 23.1 Respiratory Event Summary Total Supine ~Supine Right Left Prone REM NREM Apneas Count 0 N/A 0 0 0 N/A N/A 0 Index 0.0 N/A 0 0.0 0.0 N/A N/A 0 Hypopneas (4% Desat) Count 2 N/A 2 0 2 N/A N/A 2 Index 0.7 N/A 1 0.0 1.5 N/A N/A 0.7 Apneas & All Hypopneas Count 2 N/A 2 0 2 N/A N/A 2 Index 0.7 N/A 1 0 2 N/A N/A 0.7 Respiratory Events (Fluid Designer+All Hyp+RERA) Count 2 N/A 2 0 2 N/A N/A 2 Index 0.7 N/A 1 0.0 1.5 N/A N/A 0.7 Respiratory Related Arousal Count 1 N/A 1 0 1 N/A N/A 1 Index 0.4 N/A 0 0 1 N/A N/A 0 Snoring Analysis Supine Right Left Prone REM NREM Total Snore duration 37.8 min Snores count N/A 452 755 N/A N/A 1,207 1,207 Snore mean duration 1.9 Sec Snores index N/A 306 581 N/A N/A 435.0 435.0 TST with snoring (%) 22.7% Desaturation Event Summary: Minimum %SpO2 Event Count Mean/Min/Max Duration(sec.) Desaturation Index % Time In Bed > 90 2 20.6 / 19.0 / 22.3 1.0 47.9 86 - 90 0 N/A 0.0 51.8 81 - 85 0 N/A 0.0 0.1 76 - 80 0 N/A 0.0 0.2 71 - 75 0 N/A 0.0 0.0 66 - 70 0 N/A 0.0 0.0 61 - 65 0 N/A 0.0 0.0 56 - 60 0 N/A 0.0 0.0 51 - 55 0 N/A 0.0 0.0 < 50 0 N/A 0.0 0.0 Total REM NREM Awake <50% 0.0 min. 0.0 min. 0.0 min. 0.0 min. 51 - 60% 0.0 min. 0.0 min. 0.0 min. 0.0 min. 61 - 70% 0.0 min. 0.0 min. 0.0 min. 0.0 min. 71 - 80% 0.5 min. 0.0 min. 0.0 min. 0.5 min. 81 - 90% 133.5 min. 0.0 min. 105.0 min. 28.5 min. 91 - 100% 123.3 min. 0.0 min. 59.6 min. 63.7 min. Average 91 0 90 91 Minimum SpO2 76 N/A 86 76 Desaturation Event Index 0.4 0.0 0.7 0.0 # Desat. Events below 89% N/A N/A N/A N/A Time(%) with Saturation below 89% 3.4 0.0 1.7 1.7 Time(min.) with Saturation below 89% 8.8 0.0 4.4 4.3 Time (mins) REM (mins) NREM (mins) % of TST SpO2 Below 90% 1 N/A N1 27.2 SpO2 Below 88% 0 0 0 1 Heart Rate Analysis Min (bpm) Max (bpm) Average (bpm) Awake 32 188 79 NREM 55 127 66 REM N/A N/A N/A Overall 55 127 66 Supplemental O2 Values Minimum O2 level: None Value Start Time End Time Entry Level Automotive Technician Comments slept in the right, left, supine and upright positions. Frequent cardiac arrhythmia noted. No bruxism or PLMs noted. Snoring was noted and scored as a 3 on a scale of 1 through 5. (0=no snoring, 5=snoring loud enough to be heard through a closed door or down the [address] way) awoke to use the restroom once during the night. At 2:10 am MR. Waterman requested to end the study, his throat hurt and had heart burn. 911 was called to take MR. Waterman to the hospital, he did not feel he could drive and his throat was really bothering him. stated ,I should have cancelled my appointment until I was feeling better. The final report will be interpreted and signed by a sleep physician. The completed physician report will then be placed in the patient medical record. Therapy (cm H2O) 0 TIB (min.) 278.5 TST (min.) 166.5 Sleep Onset (min.) 12.5 REM Onset From Sleep (min.) NONE Sleep Efficiency % 60 Wakefulness (%) 40 Wakefulness (min.) 112.5 NREM 1 (%) 11 NREM 1 (min.) 18.0 NREM 2 (%) 89 NREM 2 (min.) 148.5 NREM 3 (%) 0 NREM 3 (min.) 0.0 REM (%) 0 REM (min.) 0.0 # Arousals 15 Arousal Index 5 # Snore 1,207 Snore Index 435.0 AHI 0.7 AHI Supine N/A AHI Non-Supine 1 NREM AHI 0.7 REM AHI N/A RDI 0.7 # Obstructive Apnea 0 # Central Apnea 0 # Mixed Apnea 0 # Hypopneas 2 RERAs 0 Total Respiratory Events 2 Time Below SpO2 89% (min.) 4.4 Mean NREM SpO2 (%) 90 Mean REM SpO2 (%) N/A Mean Sleep SpO2 (%) 90 Min NREM SpO2 (%) 86 Min REM SpO2 (%) N/A Position Supine (min.) 4.1 Position Non-supine (min.) 166.5 LM Index Sleep 64.1 LM Index NREM 64.1 LM Index REM N/A Mean Heart Rate (bpm) 66 Min Heart Rate (bpm) 55
== END | disposition home or self-care (01) ==
LOC: C.NEUR 21:00
PROVIDERS: ATTEND Internal Medicine Pulmonary Disease
DX: G47.10 Hypersomnia, unspecified (principal); Z68.35 Body mass index [BMI] 35.0-35.9, adult; J44.9 Chronic obstructive pulmonary disease, unspecified

== ENCOUNTER 2017-12-29 03:01 | Emergency (ER) | payer OTHER, BC ==
[~2017-12-29] VITALS: Ht 177.8 cm; Wt 112.8 kg
[~2017-12-29 03:01] MED LIST changes: -CLIN150C15 PO; -PRED10TA PO
[2017-12-29 03:02] VITALS: TEMP 36.6; Ht 177.8 cm; Wt 112.8 kg
[2017-12-29] MEDS ORDERED: LIDOCAINE HCL 2% VISC SOLN 20 ML UDC MT ONE (03:30)
[2017-12-29] MEDS ORDERED: CLINDAMYCIN HCL 150 MG CAP PO ONE (04:15)
[2017-12-29] MEDS ORDERED: CLIN150C15 PO (05:11)
[2017-12-29] MEDS ORDERED: PRED10TA PO (05:27)
[2017-12-29 05:33] VITALS: BP 165/89; PULSE 58; O2SAT 93
--- NOTE | 2017-12-29 05:44 | EMERGENCY ROOM VISIT NOTE ---
History Report prepared by Rebeca: Aide Mcrae Under the Supervision of: Dr. Roro Lacey M.D. First contact with patient: 03:09 Chief Complaint: THROAT PAIN/INJURY Stated Complaint: THROAT PAIN History of Present Illness The patient is an 82 year old male who presents to the Emergency Room with complaints of worsening throat pain starting 3 days ago. The patient states that he was supposed to be at the sleep lab [facility], but he cancelled that. He states that he snores and breathes through his mouth a lot. He states that he thinks he has thrush because he uses inhalers, but does not rinse his mouth out. The patient complains of pain when he swallows. He notes that he was not on a breathing machine. He states that he is a borderline diabetic. He currently rates his pain as a 10/10 in severity. Source of History: patient Onset: 3 days ago Position: throat Symptom Intensity: 10/10 Timing: worsening Note: The patient complains of pain when he swallows. Review of Systems See HPI for pertinent positives & negatives. A total of 10 systems reviewed and were otherwise negative. Past Medical & Surgical Medical Problems: (1) Anxiety State Nos (2) Asthma, Unspecified (3) Chr Airway Obstruct Nec (4) Chronic Kidney Disease, Stage Ii (Mild) (5) Depressive Disorder Nec (6) Diverticulosis Colon (W/O Ment Of Hemorrhage) (7) History Of Tobacco Use (8) Hyperlipidemia Nec/Nos (9) Hypertension Nos (10) Irritable Bowel Syndrome (11) Lumbago (12) Obesity, Nos (13) Osteoarthros Nos-Unspec Family History No pertinent family history Social History Smoking Status: Former Smoker Alcohol Use: occasionally Marital Status: Housing Status: lives with family Occupation Status: retired Current/Historical Medications Scheduled Amlodipine (Norvasc), 5 MG PO QAM Atorvastatin (Lipitor), 20 MG PO QPM Clindamycin Hcl (Clindamycin Hcl), 1 TAB PO QID Furosemide (Lasix), 2 TAB PO Q2D Ocuvite Preservision (Ocuvite Preservision), 1 TAB PO DAILY Potassium Ext Rel (Klor-Con), 2 TAB PO Q2D Prednisone Tab (Prednisone), 10 MG PO DAILY Quetiapine Fumarate (Seroquel), 25 MG PO HS Umeclidinium-Vilanterol (Anoro Ellipta 62.5-25 Mcg/INH), 1 PUFF INH QAM Venlafaxine Hcl (Effexor), 2 TAB PO QAM Scheduled PRN Clonazepam (Klonopin), 2 MG PO TID PRN for Anxiety/Agitation Allergies Coded Allergies: Codeine (Verified Allergy, Unknown, HIVES, 12/29/17) Dextromethorphan (Verified Allergy, Unknown, HIVES, 12/29/17) Doxylamine (Verified Allergy, Unknown, HIVES, 12/29/17) Penicillins (Verified Allergy, Unknown, HIVES, 12/29/17) Pseudoephedrine (Verified Allergy, Unknown, HIVES, 12/29/17) Physical Exam Vital Signs Date Time Temp Pulse Resp B/P (MAP) Pulse Ox O2 Delivery O2 Flow Rate FiO2 12/29/17 05:33 58 20 165/89 93 12/29/17 04:16 63 93 12/29/17 04:01 70 20 173/87 95 Room Air 12/29/17 03:46 64 12/29/17 03:31 63 160/72 91 12/29/17 03:19 151/74 12/29/17 03:04 164/77 12/29/17 03:02 93 Room Air 12/29/17 03:02 36.6 63 18 164/77 93 Room Air Physical Exam Vital signs reviewed. General: Well-appearing, obese, elderly, in no significant distress. HEENT: No scleral icterus, PERRLA, neck supple. Atraumatic. Enlarged uvula that extends past the tongue, edema and erythema noted. Mild erythema of the posterior oropharynx without exudate or drainage. Cardiovascular: Regular rate and rhythm, no extra sounds. Pulmonary: Clear to auscultation bilaterally, normal work of breathing. Abdomen: Soft, nontender, nondistended, positive bowel sounds. Musculoskeletal: Atraumatic, no peripheral edema. Neurologic: Patient awake alert and oriented x 3 Skin: Warm, dry, no rash Medical Decision & Procedures Laboratory Results Test 12/29/17 04:29 Bedside Glucose 122 mg/dl (70-99) Medications Administered Medications (Trade) Dose Ordered Sig/Jasmyne Route Start Time Stop Time Status Last Admin Dose Admin Lidocaine HCl (Viscous Lidocaine 2% Soln) 20 ml NOW ONCE MT 12/29/17 03:30 12/29/17 03:35 DC 12/29/17 03:52 20 ML Clindamycin HCl (Cleocin Cap) 150 mg ONE ONCE PO 12/29/17 04:15 12/29/17 04:16 DC 12/29/17 04:27 150 MG ED Course 0324: Past medical records reviewed. The patient was evaluated in room B10. A complete history and physical examination was performed. 0330: Ordered Lidocaine HCl 20 ml MT. 0415: Ordered Cleocin Cap 150 mg PO. 0543: Upon reevaluation, the patient appeared to have improvement of his symptoms. I discussed findings with him. He verbalized agreement of the treatment plan. The patient was discharged home. Medical Decision Differential diagnosis: Etiologies such as viral syndrome, tonsillitis, streptococcal pharyngitis, mononucleosis, peritonsillar abscess, retropharyngeal abscess, otitis, pneumonia , influenza, as well as others were entertained. This patient was evaluated and appeared to be in some discomfort. Physical examination reveals uvular edema, likely traumatic. The patient was undergoing a sleep study tonight that he canceled due to throat pain. The patient was given a viscous lidocaine gargle. A point of care glucose is 122. The patient was placed on a low-dose prednisone 10 mg daily for the next 4 days as well as clindamycin 150 mg 4 times a day for the next 7 days. Patient was advised to follow-up with his PCP for reevaluation this week. He will use Tylenol as needed for pain. He will return to the ER for worsening of symptoms or any medical concerns. Medication Reconcilliation Current Medication List: was personally reviewed by me Blood Pressure Screening Patient's blood pressure: Elevated blood pressure Blood pressure disposition: Elevated BP felt to be situational Impression Primary Impression: Uvulitis Scribe Attestation The scribe's documentation has been prepared under my direction and personally reviewed by me in its entirety. I confirm that the note above accurately reflects all work, treatment, procedures, and medical decision making performed by me. Departure Information Dispostion Home / Self-Care Prescriptions Prednisone Tab (PREDNISONE) 10 Mg Tab 10 MG PO DAILY for 4 Days, #4 TAB Prov: Roro Lacey M.D. 12/29/17 Clindamycin Hcl (CLINDAMYCIN HCL) 150 Mg Cap 1 TAB PO QID for 7 Days, #28 TAB Prov: Roro Lacey M.D. 12/29/17 Referrals Robby Telles M.D. (PCP) Forms HOME CARE DOCUMENTATION FORM, IMPORTANT VISIT INFORMATION, WORK / SCHOOL INSTRUCTIONS Patient Instructions My [facility] Additional Instructions Diagnosis: Uvulitis Prednisone 10 mg daily for the next 4 days, start tomorrow. Watch your blood sugars carefully for the next week. Minimize carbohydrate intake. Clindamycin 150 mg four times daily for 7 days. Drink plenty of clear fluids. Sleep with your head up at at least 30-45. Follow-up with your physician for reevaluation. Return to the ER for worsening of symptoms or any medical concerns.
== END 2017-12-29 05:35 | disposition home or self-care (01) ==
LOC: EDBD 03:01 → C.EDB 03:02
DX: K12.2 Cellulitis and abscess of mouth (principal); E66.3 Overweight; E78.5 Hyperlipidemia, unspecified; I12.9 Hypertensive chronic kidney disease with stage 1 through stage 4 chronic kidney disease, or unspecified chronic kidney disease; J45.909 Unspecified asthma, uncomplicated; K58.9 Irritable bowel syndrome, unspecified; N18.2 Chronic kidney disease, stage 2 (mild); F41.9 Anxiety disorder, unspecified; F32.9 Major depressive disorder, single episode, unspecified; Z79.899 Other long term (current) drug therapy; Z87.891 Personal history of nicotine dependence; Z88.0 Allergy status to penicillin; Z88.5 Allergy status to narcotic agent; Z88.8 Allergy status to other drugs, medicaments and biological substances

== ENCOUNTER → 2018-01-09 | Outpatient (CLI) | payer OTHER, BC ==
[~2018-01-09] MED LIST changes: +CLIN150C15 PO
[2018-01-09 17:49] LABS: BASO % 0.4 %; BASO ABS # 0.03 K/uL (0-0.2); EOS % 1.5 %; EOS ABS # 0.12 K/uL (0-0.5); HEMATOCRIT 40.6 % (42-52); HEMOGLOBIN 13.8 g/dL (14.0-18.0); IG# 0.04 K/uL (0.00-0.02); LYMPH % 15.8 %; LYMPH ABS # 1.26 K/uL (1.2-3.4); MEAN CELL VOLUME 88.1 fL (80-100); MEAN CORPUSCULAR HEMOGLOBIN 29.9 pg (25-34); MEAN PLATELET VOLUME 10.1 fL (7.4-10.4); MONO % 9.3 %; MONO ABS # 0.74 K/uL (0.11-0.59); NEUT % 72.5 %; PLATELET COUNT 219 K/uL (130-400); RED CELL DISTRIBUTION WIDTH CV 13.4 % (11.5-14.5); RED CELL DISTRIBUTION WIDTH SD 42.9 fL (36.4-46.3); WHITE BLOOD COUNT 7.99 K/uL (4.8-10.8)
[2018-01-09 18:18] LABS: ALBUMIN 3.9 gm/dl (3.4-5.0); ALT/SGPT 33 U/L (12-78); AST/SGOT 18 U/L (15-37); BLOOD UREA NITROGEN 37 mg/dl (7-18); CALCIUM 9.3 mg/dl (8.5-10.1); CARBON DIOXIDE 29 mmol/L (21-32); CHOLESTEROL 144 mg/dl (0-200); CREATININE 1.44 mg/dl (0.60-1.40); GLUCOSE 132 mg/dl (70-99); SODIUM 137 mmol/L (136-145)
[2018-01-09 18:27] LABS: ALKALINE PHOSPHATASE 80 U/L (45-117); LDL CHOLESTEROL CALCULATED 84 mg/dl; TOTAL PROTEIN 7.9 gm/dl (6.4-8.2)
[2018-01-10 07:10] LABS: HEMOGLOBIN A1C 6.8 % (4.5-5.6)
== END | disposition home or self-care (01) ==
LOC: C.LABPBG 13:57
PROVIDERS: ATTEND Internal Medicine Geriatric Medicine
DX: I10 Essential (primary) hypertension (principal); F41.8 Other specified anxiety disorders; E11.9 Type 2 diabetes mellitus without complications; K76.0 Fatty (change of) liver, not elsewhere classified; E78.5 Hyperlipidemia, unspecified; D64.9 Anemia, unspecified; I25.10 Atherosclerotic heart disease of native coronary artery without angina pectoris

== ENCOUNTER → 2018-02-12 | Outpatient (CLI) | payer OTHER, BC ==
[2018-02-12 16:55] LABS: HEMATOCRIT 39.4 % (42-52); HEMOGLOBIN 13.3 g/dL (14.0-18.0); MEAN CELL VOLUME 88.5 fL (80-100); MEAN CORPUSCULAR HEMOGLOBIN 29.9 pg (25-34); MEAN CORPUSCULAR HGB CONC 33.8 g/dl (32-36); MEAN PLATELET VOLUME 9.7 fL (7.4-10.4); PLATELET COUNT 189 K/uL (130-400); RED CELL DISTRIBUTION WIDTH CV 13.3 % (11.5-14.5); RED CELL DISTRIBUTION WIDTH SD 43.1 fL (36.4-46.3); WHITE BLOOD COUNT 5.54 K/uL (4.8-10.8)
[2018-02-12 17:17] LABS: BLOOD UREA NITROGEN 21 mg/dl (7-18); CALCIUM 8.9 mg/dl (8.5-10.1); CARBON DIOXIDE 27 mmol/L (21-32); CREATININE 1.13 mg/dl (0.60-1.40); GLUCOSE 136 mg/dl (70-99); SODIUM 139 mmol/L (136-145)
== END | disposition home or self-care (01) ==
LOC: C.LABPBG 12:45
PROVIDERS: ATTEND Internal Medicine Geriatric Medicine
DX: I12.9 Hypertensive chronic kidney disease with stage 1 through stage 4 chronic kidney disease, or unspecified chronic kidney disease (principal); N18.9 Chronic kidney disease, unspecified; D64.9 Anemia, unspecified